=== PATIENT | male | born 1965 | race Two or more races ===

== ENCOUNTER 2019-04-04 03:25 | Emergency (ER) | payer SELFPAY ==
[~2019-04-04] VITALS: Ht 170.2 cm; Wt 78.0 kg
--- NOTE | 2019-04-04 03:26 | NUR ---
ED Nurse Note: Patient brought in by ambulance and accompanied by police, no suicidal ideation, no hold. Patient also accompanied by male secondary history teacher. Police at bedside collecting report, will continue to monitor.
--- NOTE | 2019-04-04 04:26 | NUR ---
ED Nurse Note: Patient provided with extra blankets for comfort, has no complaints at this time. Will continue to monitor.
[2019-04-04] MEDS ORDERED: Tetanus/Diptheria/Pertussis IM ONE (04:30)
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
--- NOTE | 2019-04-04 05:48 | NUR ---
ED Nurse Note: Radiology at bedside for xray.
[2019-04-04] MEDS ORDERED: ACETAMINOPHEN325 M1 ORAL (07:01)
[2019-04-04] MEDS ORDERED: BACITRACIN15 GM TOPIC (07:01)
[2019-04-04] MEDS ORDERED: IBUPROFEN600 MG ORAL (07:01)
--- NOTE | 2019-04-04 07:03 | NUR ---
HAND-OFF: Report given to Ron MARTINEZ.
[2019-04-04 08:21] VITALS: BP 138/78
--- NOTE | 2019-04-04 08:21 | NUR ---
ER DISCHARGE NOTE: Patient is cleared to be discharged per ERMD, pt is aox4, on room air, with stable vital signs. pt was given dc and prescription instructions, pt was able to verbalize understanding, pt id band removed without complications. pt is able to ambulate with steady gait. pt took all belongings. Pt ambulated to take the bus from the ED.
--- NOTE | 2019-04-04 11:22 | Diagnostic Imaging Report ---
Indications:Injury, pain in left elbow after falling Technique: Three or 4 views of the left elbow Comparison: None Findings: No acute fractures. No dislocations. The joint spaces are preserved. Spurs are seen coming off of the proximal ulna. No effusion Impression: Negative
--- NOTE | 2019-04-04 12:38 | Diagnostic Imaging Report ---
. Indication: Pain in left knee after falling Technique: 3 views of the left knee Comparison: None Findings: No acute fractures. No dislocations. Joint spaces are preserved Impression: No acute process
== END 2019-04-04 08:21 | disposition home or self-care (01) ==
LOC: EDBD 03:25 → EMR 04:27
DX: S80.02XA Contusion of left knee, initial encounter (principal); S50.02XA Contusion of left elbow, initial encounter; T14.8XXA Other injury of unspecified body region, initial encounter; Z23 Encounter for immunization; F17.200 Nicotine dependence, unspecified, uncomplicated; W17.89XA Other fall from one level to another, initial encounter; Y92.009 Unspecified place in unspecified non-institutional (private) residence as the place of occurrence of the external cause
CPT/HCPCS: 90471; 90715; 99283